=== PATIENT | male | born 2005 | race Caucasian/White ===

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

== ENCOUNTER → 2024-07-23 | Outpatient (CLI) | payer MEDICAID ==
[2024-07-24 10:26] LABS: CHOLESTEROL LEVEL 185 MG/DL (<200); CHOLESTEROL RISK RATIO 3.51 (<5); HDL CHOLESTEROL 52.6 MG/DL (>40); LDL CHOLESTEROL 113.2 MG/DL (<100); NON-HDL-C 132.4 MG/DL; TRIGLYCERIDES LEVEL 96 MG/DL (<150)
[2024-07-24 10:54] LABS: HIV 1&2 SCREEN NEGATIVE (NEGATIVE)
[2024-07-24 11:02] LABS: HEPATITIS C VIRUS ABY INDEX < 0.02 INDEX (<0.8)
== END ==
LOC: M PLALAB 16:33
PROVIDERS: ATTEND Family Medicine
DX: Z13.220 Encounter for screening for lipoid disorders (principal)